=== PATIENT | female | born 1980 | race Caucasian/White ===

== ENCOUNTER 2022-12-18 21:06 | Emergency (ER) | payer BC ==
[~2022-12-18] VITALS: Ht 162.6 cm; Wt 59.0 kg
[2022-12-18] MEDS ORDERED: CHLO25TA2 PO (22:10)
--- NOTE | 2022-12-18 22:23 | NUR ---
Dr. Castellano evaluating patient at bedside. MSE in progress.
[2022-12-18] MEDS ORDERED: CLONIDINE HCL 0.1 MG TABLET PO ONE (22:30)
[2022-12-18] MEDS ORDERED: CLONIDINE HCL 0.1 MG TABLET ONE (22:39)
[2022-12-18 22:48] LABS: HEMATOCRIT 43.4 % (31.2-41.9); MEAN CORPUSCULAR HEMOGLOBIN 29.6 uug (24.7-32.8); MEAN CORPUSCULAR VOLUME 85.7 fL (75.5-95.3); PLATELET COUNT (AUTO) 264 K/uL (179-408)
[2022-12-18 23:03] LABS: *BILIRUBIN,URIN NEGATIVE (NEGATIVE); *BLOOD, URINE NEGATIVE (NEGATIVE); *CLARITY,URINE CLEAR (CLEAR); *COLOR,URINE YELLOW (YELLOW); *KETONES,URINE 1+ (NEGATIVE); *UROBILINOGEN,URINE 0.2 E.U./dl (NORMAL); LEUKOCYTE ESTERASE ,URINE NEGATIVE (NEGATIVE); NITRITE, URINE NEGATIVE (NEGATIVE); UGLUCOSE NEGATIVE (NEGATIVE)
[2022-12-18 23:07] LABS: CARBON DIOXIDE 28 mmol/L (21-32); CHLORIDE 99 mmol/L (98-107); CREATININE 0.8 mg/dL (0.6-1.3); GLUCOSE 122 mg/dL (74-106); POTASSIUM 3.1 mmol/L (3.5-5.1); UREA NITROGEN, BLOOD 14 mg/dL (7-18)
[2022-12-18] MEDS ORDERED: POTASSIUM BICARBONATE/CIT AC 25 MEQ TABLET.EFF PO ONE (23:30)
[2022-12-18] MEDS ORDERED: POTASSIUM BICARBONATE/CIT AC 25 MEQ TABLET.EFF ONE (23:52)
[2022-12-19] MEDS ORDERED: LISI20TA PO (00:40)
[2022-12-19] MEDS ORDERED: CLON0.1T PO (00:40)
--- NOTE | 2022-12-19 00:51 | NUR ---
Patient discharged to home in stable condition. Written and verbal after care instructions given. Patient verbalizes understanding of instructions. Stressed follow up or return to ER for worsening s/s.
[2022-12-19 00:57] VITALS: BP 133/105
== END 2022-12-19 00:51 | disposition home or self-care (01) ==
LOC: ER 21:06
DX: I10 Essential (primary) hypertension (principal); E87.6 Hypokalemia; E83.42 Hypomagnesemia; R00.0 Tachycardia, unspecified
CPT/HCPCS: 36415; 83735; 84484; 85025; A4663